=== PATIENT | male | born 1995 | race Caucasian/White ===

== ENCOUNTER 2017-01-15 02:04 | Emergency (ER) | payer OTHER ==
[~2017-01-15] VITALS: Ht 177.8 cm; Wt 108.9 kg
--- NOTE | 2017-01-15 02:04 | NUR ---
BIB [facility] TO ER OF1
--- NOTE | 2017-01-15 02:05 | NUR ---
[facility] LEFT WITH PATIENT WITHOUT BEING SEEN BY . NO FURTHER CARE PROVIDED FOR PATIENT.
[2017-01-15 02:10] VITALS: BP 142/82
--- NOTE | 2017-01-15 02:10 | NUR ---
21/M BIB [facility] C/O PRE BOOK. DENIES ANY PAIN, NO S/S OF DISTRESS NOTED AT THE MOMENT. ER MD AWARE.
[2017-01-15 02:15] VITALS: BP 142/82
== END 2017-01-15 02:15 | disposition left against medical advice (07) ==
LOC: MED 02:04
DX: Z02.89 Encounter for other administrative examinations (principal); Z53.21 Procedure and treatment not carried out due to patient leaving prior to being seen by health care provider

== ENCOUNTER 2017-01-15 04:16 | Emergency (ER) | payer OTHER ==
[~2017-01-15] VITALS: Ht 177.8 cm; Wt 108.9 kg
--- NOTE | 2017-01-15 04:16 | NUR ---
BIB [facility] TO ER OF1
[2017-01-15 04:25] VITALS: BP 115/74
--- NOTE | 2017-01-15 04:25 | NUR ---
21 Y/O BIB [facility] FOR PREBBOOK. NO S/S OF DISTRESS NOTED AT THIS TIME.
--- NOTE | 2017-01-15 04:30 | NUR ---
Patient being evaluated by physician.
[2017-01-15 04:40] VITALS: BP 115/74
--- NOTE | 2017-01-15 04:40 | NUR ---
PER ER MD Patient STABLE FOR discharged with v/s stable. Written and verbal after care instructions given and explained. Patient verbalized understanding. Police with in custody. All questions addressed prior to discharge. Advised to follow up with PMD.
== END 2017-01-15 04:40 ==
LOC: MED 04:16
DX: Z02.89 Encounter for other administrative examinations (principal); S13.4XXA Sprain of ligaments of cervical spine, initial encounter; V89.2XXA Person injured in unspecified motor-vehicle accident, traffic, initial encounter; Y93.89 Activity, other specified; Y92.89 Other specified places as the place of occurrence of the external cause; Y99.8 Other external cause status